=== PATIENT | male | born 1950 ===

== ENCOUNTER → 2020-12-08 | Outpatient (CLI) | payer MEDICARE ==
[~2020-12-08] MED LIST: ASPI81TA59 PO; BP MED; SIMV40TA18 PO
== END ==
LOC: LAB 09:18
PROVIDERS: ATTEND Internal Medicine Gastroenterology
DX: Z01.812 Encounter for preprocedural laboratory examination (principal); Z20.822 Contact with and (suspected) exposure to COVID-19
CPT/HCPCS: U0003

== ENCOUNTER → 2020-12-10 | Day surgery (SDC) | payer MEDICARE ==
[~2020-12-10] MED LIST changes: +HYDROmorphone 2 MG/ML VIAL IVP PRN; +IV RINGERS,LACTATED 1000ML 1,000 ML IV SCH; +LIDOCAINE 2% PF 5 ML VIAL. ONE; +MORPHINE SULFATE 2 MG/ML VIAL. IVP PRN; +PROCHLORPERAZINE 10 MG/2 ML VIAL. IVP PRN; +PROPOFOL 10 MG/ML (20ML) VIAL. IV ONE; +fentaNYL PF VIAL 100 MCG/2 ML VIAL IVP PRN
[2020-12-10 08:44] VITALS: BP 119/60
--- NOTE | 2020-12-14 14:17 | PATHOLOGY ---
[facility] Accession Number: [id number] . 01 Material submitted: . PART A: sigmoid colon - SIGMOID POLYP PART B: cecum - CECAL MASS PART C: colon - DESCENDING COLON POLYP. Modifiers: descending . 01 Clinical history: . HISTORY OF POLYPS COLONOSCOPY HISTORY COLON POLYPS . 02 Diagnosis: A. Colon biopsy, sigmoid polyp: - Tubular adenoma. . B. 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 . C. Colon biopsies, descending colon polyp: - Tubular adenoma. . (JPM:mml; 12/14/2020) [facility] 12/14/2020 1031 Local . 02 Comment: Sections of the sigmoid polyp reveal a tubular adenoma showing no high grade dysplasia or evidence of malignancy. . Sections of the cecal mass biopsy reveal a tubulovillous adenoma which is predominantly tubular. There is focal high grade dysplasia. There is no definitive evidence of malignancy. . Sections of the descending colon polyp reveal a tubular adenoma showing no high grade dysplasia or evidence of malignancy. . (JPM:mml; 12/14/2020) . 02 Electronically signed: . Sanford Soriano MD, Pathologist NPI- [id number] . 01 Gross description: . A. The specimen is received in formalin, labeled "Hamlet Shade Sr., sigmoid polyp". Received is a segment of dark brown tissue measuring 1.1 x 0.8 x 0.6 cm in greatest dimensions. The surgical margin is inked. The specimen is trisected and entirely submitted in cassette A1. . B. The specimen is received in formalin, labeled "Hamlet Shade Sr., cecal mass". Received are multiple segments of pale lopez tissue ranging in size from 0.1-0.3 cm in maximum dimensions. The specimen is submitted entirely in cassette B1. . C. The specimen is received in formalin, labeled "Hamlet Oz Sr., descending colon polyp". Received are two segments of pale lopez tissue measuring 0.4 and 0.5 cm in maximum dimensions. The specimen is submitted entirely in cassette C1. (CAA; 12/13/2020) QAC/QAC 12/13/2020 1347 Local . 02 Pathologist provided ICD-10: D12.5, D12.0, D12.4 . 02 CPT . 770853, [id number], [id number] Specimen Comment: A courtesy copy of this report has been sent to [phone] Specimen Comment: Report sent to Performed at: 01 [facility] [address], [place] [id number] MD Sean Rivera MD Phone: [phone] Performed at: 02 [facility] [address], [place] [id number] MD Sanford Soriano MD Phone: [phone]
== END | disposition home or self-care (01) ==
LOC: SURG 06:44
PROVIDERS: ATTEND Internal Medicine Gastroenterology
DX: Z12.11 Encounter for screening for malignant neoplasm of colon (principal); D12.5 Benign neoplasm of sigmoid colon; D12.0 Benign neoplasm of cecum; D12.4 Benign neoplasm of descending colon; K64.0 First degree hemorrhoids; K57.30 Diverticulosis of large intestine without perforation or abscess without bleeding; K63.89 Other specified diseases of intestine; I10 Essential (primary) hypertension; E78.00 Pure hypercholesterolemia, unspecified; M19.90 Unspecified osteoarthritis, unspecified site; G47.30 Sleep apnea, unspecified; Z87.891 Personal history of nicotine dependence; Z79.82 Long term (current) use of aspirin; Z79.899 Other long term (current) drug therapy; Z72.89 Other problems related to lifestyle; Z98.890 Other specified postprocedural states
CPT/HCPCS: 45380; 45385; 88305; J2704; 45384